=== PATIENT | male | born 1965 | race Caucasian/White ===

== ENCOUNTER 2018-07-10 01:16 | Observation (INO) | payer SELFPAY ==
[2018-07-10 02:25] LABS: CKMB 1.6 ng/mL (0-6.6); Troponin I Less than 0.010 ng/mL (< 0.028)
[2018-07-10 05:04] VITALS: BMI 31.8
[2018-07-10 06:06] LABS: Troponin I Less than 0.010 ng/mL (< 0.028)
[2018-07-10 08:02] LABS: Troponin I Less than 0.010 ng/mL (< 0.028)
[2018-07-10 08:14] VITALS: TEMP 97.6
[2018-07-10] MEDS ORDERED: Nitroglycerin 0.4 MG TAB (25 Tab Bottle) PO PRN (09:13)
[2018-07-10 10:03] LABS: Cardiac Risk 4.7 (Less than 4.5)
--- NOTE | 2018-07-10 10:33 | HP ---
CHIEF COMPLAINT: Chest pain. HISTORY OF PRESENT ILLNESS: Patient is a very pleasant 53-year-old male with no significant past med ical history, who presents to the hospital with complaints of chest pain. The patient states that he was sitting on his reclining, watching TV, when he started having significant amount of left-sided c hest pain, radiating down his left arm. Patient stated that he has never had pain like this before. The patient said that the pain lasted about 10 minutes and the patient took 2 aspirin. The patient stated that he denies any nausea, vomiting, diaphoresis. The patient has never had any heart attacks or strokes in the past. The patient states that he normally takes an aspirin for preventive purpose s; however, yesterday, he did not take an aspirin. The patient also stated that he did mow his lawn yesterday, I believe. PAST MEDICAL HISTORY: Denies. PAST SURGICAL HISTORY: Denies. FAMILY HISTORY: The patient does not recall any medical history in terms of his biological father si nce he has not talked to him for a very long time. SOCIAL HISTORY: He smokes a pack a day. Denies any alcohol or drug use. ALLERGIES: No known drug allergies. MEDICATIONS: He takes an aspirin 81 mg daily. REVIEW OF SYSTEMS: All negative except for the ones mentioned above in the HPI. PHYSICAL EXAMINATION: VITAL SIGNS: 97.6, 64, 16, 92% on room air, 134/86. GENERAL: He is awake, alert, oriented x3, does not appear in distress. CARDIOVASCULAR: S1 and S2 present. Chest area, does have mild pain upon palpation of his left chest wall area. LUNGS: Clear to auscultation. No rhonchi or wheezes noted. ABDOMEN: Soft, nontender. Bowel sounds are present x2. EXTREMITIES: No edema. Pedal pulses are present x2. NEUROLOGIC: Neurovascular blum, no focal deficits noted. SKIN: Intact. No lesions or rashes noted. LABORATORY RESULTS: His troponin x3 were negative. His WBCs of 9.4, hemoglobin of 15.3, hematocrit of 46.5, platelets of 249. Chemistry: Sodium of 139, potassium of 3.8, BUN of 18, and creatinine of 0.83. His LFTs were normal. We will check a lipid panel also. ASSESSMENT AND PLAN: The patient is a very pleasant 53-year-old male, who presents to the hospital w ith chest pain. 1. Atypical chest pain. This could be cardiac versus musculoskeletal. We will start patient on asp irin. Also, get a stress test. EKG appears to be normal sinus rhythm. However, given patient's age , history of smoking, and male sex, we will go ahead and do a set of stress test. We will also check a lipid panel. 2. Smoking cessation. I did educate the patient about again smoking. Patient stated that he is goi ng to try some pills. He has tried nicotine patches in the past. However, it has not really worked for him. However, he has agreed to trying nicotine patch again while he is in the hospital. 3. Deep venous thrombosis prophylaxis. We will put patient on some sequential compression devices o r some heparin or Lovenox.
[2018-07-10 11:48] VITALS: BP 110/65
[2018-07-10] MEDS ORDERED: ADENOSINE 60 MG/20 ML VIAL ONE (13:45)
--- NOTE | 2018-07-10 15:38 | NM ---
NUCLEAR MEDICINE CARDIAC STRESS WITH EF AND WALL MOTION: HISTORY: Chest pain. COMPARISON: None. TECHNIQUE: The patient was administered 9.5 mCi of Technetium 99m sestamibi for rest imaging and 27.7 mCi of Trinity hnetium 99m sestamibi for stress imaging. Cardiac gating is performed. FINDINGS: Homogeneous distribution of the radiotracer in the left ventricle. No reversibility. No fixed defec t. TID is 1.13. End-diastolic volume is 101 mL. End-systolic volume is 39 mL. CARDIAC GATING: Normal thickening and wall motion. A 62% ejection fraction. IMPRESSION: 1. Normal ejection fraction of 62%. 2. No reversibility or fixed defect. POS: [facility]
--- NOTE | 2018-07-11 01:18 | DIS ---
DATE OF ADMISSION: 07/10/2018 DATE OF DISCHARGE: 07/10/2018 DISCHARGE DIAGNOSES: 1. Chest pain. 2. History of smoking. HOSPITAL COURSE: The patient is a very pleasant 53-year-old male, who initially presented to the [facility] with complaints of left-sided chest pain with radiation to his left arm. The patient's troponi ns x3 were negative. EKG was normal. He underwent a stress test based on his risk factors. Stress test indicated an EF of 62% with no reversible or fixed defect. The patient will be discharged home. He was advised against smoking. He does not want a nicotine patch. The patient states that he has tried it before and it really did not help. He will follow up with his primary care doctor as israel loyd. MEDICATIONS: None. PHYSICAL EXAMINATION: Similar to the one mentioned in the HPI that was done a few hours ago.
[2018-07-11] MEDS ORDERED: Aspirin 325 MG TAB PO SCH (09:00)
[2018-07-11] MEDS ORDERED: Nicotine 21 MG PATCH TD SCH (12:00)
--- NOTE | 2018-07-17 09:28 | STRESS ---
Acquisition Time: 2018-07-10 14:20:49 Total Exercise Time: 00:04:00 Test Indications: CHEST PAIN Medications: Protocol: ADENOSINE Max HR: 096 BPM 58% of Pred: 165 BPM Max BP: 160/070 mmHG Max Work Load: 1.0 METS THE PATIENT WAS INJECTED WITH ADENOSINE. HE DID DEVELOP CHEST PAIN. THERE WAS NO SIGNIFICANT ST DEPRESSION. AWAIT NUCLEAR IMAGES FOR DEFINITIVE DIAGNOSIS. Confirmed by SANTA PELLETIER ([id number]), supervising film or videotape editor ALICIA VELAZQUEZ ([id number]) on 07/17/2018 9:28:12 AM Referred By: MD Isadora SCHWARZ Confirmed By:SANTA PELLETIER
--- NOTE | 2018-07-18 12:19 | EKG ---
Test Reason : Blood Pressure : / mmHG Vent. Rate : 064 BPM Atrial Rate : 064 BPM P-R Int : 142 ms QRS Dur : 070 ms QT Int : 370 ms P-R-T Axes : 054 061 029 degrees QTc Int : 381 ms Normal sinus rhythm Normal ECG Confirmed by FRANCI BOYLE ([id number]), art editor RANJIT STEWART ([id number]) on 07/18/2018 12:18:58 PM Referred By: TAMAR Confirmed By:FRANCI BOYLE
== END 2018-07-10 17:10 | disposition home or self-care (01) ==
LOC: ERS 01:16 → 2SW 01:33
PROVIDERS: ADMIT Hospitalist; ATTEND Hospitalist
DX: R07.89 Other chest pain (principal); F17.200 Nicotine dependence, unspecified, uncomplicated
CPT/HCPCS: 36415; 78452; 80061; 82553; 84484; 93005; 93017; 94760; A9500; G0378; J0153